=== PATIENT | female | born 1935 | race Caucasian/White ===

== ENCOUNTER 2019-06-29 07:39 | Outpatient (CLI) | payer MEDICARE, OTHER ==
[~2019-06-29 07:39] MED LIST: LEVO50TA5 PO; METO25TA35 PO; NITR0.4T28 SL; REGADENOSON 0.4 MG/5 ML SYRINGE ONE; RIVA20TA PO
== END 2019-06-29 23:59 | disposition home or self-care (01) ==
LOC: CFH 07:39
PROVIDERS: ATTEND Internal Medicine Cardiovascular Disease
DX: R07.89 Other chest pain (principal); I10 Essential (primary) hypertension
CPT/HCPCS: 78452; 93017; A9502; J2785

== ENCOUNTER → 2019-07-21 | Outpatient (CLI) | payer MEDICARE, OTHER ==
[~2019-07-21] MED LIST changes: -REGADENOSON 0.4 MG/5 ML SYRINGE ONE
== END | disposition home or self-care (01) ==
LOC: CFH 14:49
PROVIDERS: ATTEND Student in an Organized Health Care Education/Training Program
DX: Z12.31 Encounter for screening mammogram for malignant neoplasm of breast (principal)
CPT/HCPCS: 77067

== ENCOUNTER → 2019-08-16 | Outpatient (CLI) | payer MEDICARE, OTHER | END | disposition home or self-care (01) | LOC: CFH 09:45 | PROVIDERS: ATTEND Family Medicine | DX: J98.4 Other disorders of lung (principal); R91.1 Solitary pulmonary nodule | CPT/HCPCS: 71250 ==

== ENCOUNTER → 2019-10-10 | Outpatient (CLI) | payer MEDICARE, OTHER | END | disposition home or self-care (01) | LOC: CFH 13:39 | PROVIDERS: ATTEND Internal Medicine | DX: R91.8 Other nonspecific abnormal finding of lung field (principal) | CPT/HCPCS: 36415; 86480 ==

== ENCOUNTER → 2019-11-01 | Outpatient (CLI) | payer MEDICARE, OTHER ==
[~2019-11-01] MED LIST changes: +LEVO25TA4 PO
== END | disposition home or self-care (01) ==
LOC: STAR 13:29
PROVIDERS: ATTEND Internal Medicine Cardiovascular Disease
DX: Z01.818 Encounter for other preprocedural examination (principal)
CPT/HCPCS: 36415; 80053; 85025

== ENCOUNTER 2019-11-08 11:01 | Day surgery (SDC) | payer MEDICARE, OTHER ==
[2019-11-01 14:27] VITALS: BP 171/81
[2019-11-01 14:36] LABS: BASOPHILS # (AUTO) 0.03 x10^3/uL (0-0.1); BASOPHILS % (AUTO) 1 % (0-1); EOSINOPHILS # (AUTO) 0.11 x10^3/uL (0-0.4); EOSINOPHILS % (AUTO) 2 % (1-7); LYMPHOCYTES # (AUTO) 2.44 x10^3/uL (1-3.4); LYMPHOCYTES % (AUTO) 39 % (22-44); MD NO; MEAN CORPUSCULAR HEMOGLOBIN 31.9 pg (27.0-34.8); MEAN CORPUSCULAR HGB CONC 34.1 g/dL (32.4-35.8); MEAN CORPUSCULAR VOLUME 93.5 fL (80-100); MEAN PLATELET VOLUME 9.5 fL (7.4-10.4); MONOCYTES # (AUTO) 0.46 x10^3/uL (0.2-0.8); MONOCYTES % (AUTO) 7 % (2-9); NEUTROPHILS # (AUTO) 3.27 x10^3/uL (1.8-6.8); NEUTROPHILS % (AUTO) 52 % (42-75); PLATELET COUNT 255 x10^3/uL (130-400); RED BLOOD COUNT 4.55 x10^6/uL (3.82-5.3); RED CELL DISTRIBUTION WIDTH 12.7 % (9.6-15.2)
[2019-11-01 14:47] LABS: CALCIUM 8.6 mg/dL (8.5-10.1); CHLORIDE 108 mmol/L (98-107); CREATININE 0.81 mg/dL (0.55-1.02)
[2019-11-01 14:48] LABS: ALANINE AMINOTRANSFERASE 27 U/L (12-78); ALBUMIN 3.5 g/dL (3.4-5.0)
[2019-11-01 14:53] LABS: ALKALINE PHOSPHATASE 77 U/L (45-117); ANION GAP 4 mmol/L (5-15); BILIRUBIN,TOTAL 0.4 mg/dL (0.2-1.0); TOTAL PROTEIN 7.8 g/dL (6.4-8.2)
[~2019-11-08] VITALS: Ht 171.4 cm; Wt 73.6 kg
[2019-11-08] MEDS ORDERED: FLUT100B INH (11:34)
[2019-11-08] MEDS ORDERED: ALBU8.5H8 INH (11:34)
[2019-11-08] MEDS ORDERED: MIDAZOLAM 1 MG/ML, 2ML ONE (12:22)
[2019-11-08] MEDS ORDERED: FENTANYL PF 100 MCG/2ML ONE (12:22)
[2019-11-08] MEDS ORDERED: LIDOCAINE-MPF 1%, 5ML ONE (12:23)
[2019-11-08] MEDS ORDERED: VERAPAMIL 2.5 MG/ML, 2ML ONE (12:23)
[2019-11-08] MEDS ORDERED: HEPARIN 1,000 UNITS/ML, 10ML ONE (12:23)
[2019-11-08] MEDS ORDERED: SODIUM CHLORIDE 0.9% 1,000 ML IV SCH (14:20)
[2019-11-08] MEDS ORDERED: hydrALAzine 20 MG/ML, 1ML ONE (15:09)
[2019-11-08] MEDS ORDERED: hydrALAzine 20 MG/ML, 1ML IV ONE (15:30)
== END 2019-11-08 16:00 | disposition home or self-care (01) ==
LOC: CACL 11:01
PROVIDERS: ATTEND Internal Medicine Cardiovascular Disease
DX: R07.9 Chest pain, unspecified (principal); I48.0 Paroxysmal atrial fibrillation; I10 Essential (primary) hypertension; F10.10 Alcohol abuse, uncomplicated; Z79.01 Long term (current) use of anticoagulants; Z79.899 Other long term (current) drug therapy; Z91.048 Other nonmedicinal substance allergy status; Z85.820 Personal history of malignant melanoma of skin; Z82.49 Family history of ischemic heart disease and other diseases of the circulatory system
CPT/HCPCS: 93458; C1769; C1894; J0360; J1644; Q9967; 36415; 80053; 85025; 99156; J2250; J3010

== ENCOUNTER 2020-05-01 20:35 | Emergency (ER) | payer MEDICARE, OTHER ==
[~2020-05-01] VITALS: Ht 170.2 cm; Wt 84.2 kg
[~2020-05-01 20:35] MED LIST changes: +ALBU8.5H8 INH; +FLUT100B INH
--- NOTE | 2020-05-01 20:45 | NUR ---
EKG IN TRIAGE
[2020-05-01] MEDS ORDERED: ACETAMINOPHEN 500 MG TABLET ONE (21:10)
[2020-05-01 21:23] VITALS: BP 147/78
[2020-05-01] MEDS ORDERED: ACETAMINOPHEN 500 MG TABLET PO ONE (21:30)
== END 2020-05-01 22:15 | disposition home or self-care (01) ==
LOC: ED 22:00
DX: R51 Headache (principal); R94.31 Abnormal electrocardiogram [ECG] [EKG]; E03.9 Hypothyroidism, unspecified; I10 Essential (primary) hypertension; I48.91 Unspecified atrial fibrillation
CPT/HCPCS: 93005; 99283

== ENCOUNTER → 2020-08-03 | Outpatient (CLI) | payer MEDICARE, OTHER ==
[~2020-08-03] MED LIST changes: +OMNIPAQUE 350 MG/ML, 100ML BOTTLE ONE
[2020-08-03 10:46] LABS: BASOPHILS % (AUTO) 1 % (0-1); EOSINOPHILS % (AUTO) 1 % (1-7); LYMPHOCYTES % (AUTO) 35 % (22-44); MEAN CORPUSCULAR HEMOGLOBIN 31.6 pg (27.0-34.8); MEAN CORPUSCULAR HGB CONC 33.8 g/dL (32.4-35.8); MEAN PLATELET VOLUME 9.6 fL (7.4-10.4); MONOCYTES % (AUTO) 8 % (2-9); NEUTROPHILS % (AUTO) 55 % (42-75); PLATELET COUNT 257 x10^3/uL (130-400); RED BLOOD COUNT 4.19 x10^6/uL (3.82-5.3); RED CELL DISTRIBUTION WIDTH 13.1 % (9.6-15.2)
[2020-08-03 10:48] LABS: MD NO
[2020-08-03 10:57] LABS: CREATININE 0.98 mg/dL (0.55-1.02)
[2020-08-03 10:59] LABS: ALANINE AMINOTRANSFERASE 21 U/L (12-78); ANION GAP 5 mmol/L (5-15); CALCIUM 8.8 mg/dL (8.5-10.1); CHLORIDE 111 mmol/L (98-107)
[2020-08-03 11:00] LABS: CREATININE 0.98 mg/dL (0.55-1.02)
[2020-08-03 11:01] LABS: ALKALINE PHOSPHATASE 69 U/L (45-117); BILIRUBIN,TOTAL 0.7 mg/dL (0.2-1.0); TOTAL PROTEIN 8.1 g/dL (6.4-8.2)
== END | disposition home or self-care (01) ==
LOC: RAD 10:13
PROVIDERS: ATTEND Physician Assistant
DX: R91.8 Other nonspecific abnormal finding of lung field (principal); R10.11 Right upper quadrant pain; Q89.09 Congenital malformations of spleen; Z90.49 Acquired absence of other specified parts of digestive tract
CPT/HCPCS: 36415; 74170; 80053; 82565; 83690; 85025; Q9967

== ENCOUNTER → 2020-11-06 | Outpatient (CLI) | payer MEDICARE, OTHER ==
[~2020-11-06] MED LIST changes: +ATOR40TA78 PO; +CHOL10003 PO; +FAMO20TA7 PO; +HYDR-1067 PO; -OMNIPAQUE 350 MG/ML, 100ML BOTTLE ONE; +ONDA4TAB7 PO; +RIVA15TA PO; +SENN-204 PO
== END | disposition home or self-care (01) ==
LOC: ROC 09:46
PROVIDERS: ATTEND Radiology Radiation Oncology
DX: C90.00 Multiple myeloma not having achieved remission (principal); I10 Essential (primary) hypertension; E87.6 Hypokalemia; E83.42 Hypomagnesemia; E03.9 Hypothyroidism, unspecified; I25.2 Old myocardial infarction; G89.29 Other chronic pain; I48.0 Paroxysmal atrial fibrillation; Z90.710 Acquired absence of both cervix and uterus; Z79.01 Long term (current) use of anticoagulants
CPT/HCPCS: G0463